=== PATIENT | female | born 1970 | race Caucasian/White ===

== ENCOUNTER 2016-10-06 22:10 | Emergency (ER) | payer BC ==
[~2016-10-06] VITALS: Ht 152.4 cm; Wt 72.3 kg
[2016-10-06 22:15] VITALS: BP 183/99; TEMP 98.4
[2016-10-06] MEDS ORDERED: NOVOLOG 100U100 U/M1 SQ (22:19)
[2016-10-06] MEDS ORDERED: SYNTHROID0.075 MG/T PO (22:20)
[2016-10-06] MEDS ORDERED: GLUCOPHAGE1000 MG PO (22:21)
[2016-10-06] MEDS ORDERED: SINGULAIR 110 MG/TAB PO (22:21)
[2016-10-06] MEDS ORDERED: ASPIRIN 81M81 MG/TA2 PO (22:22)
[2016-10-06] MEDS ORDERED: VIT D (22:22)
[2016-10-06] MEDS ORDERED: BRINTELLIX20 (22:22)
[2016-10-06] MEDS ORDERED: ACCUPRIL10 M1 PO (22:23)
[2016-10-06 23:16] VITALS: PULSE 99
== END 2016-10-06 23:17 | disposition home or self-care (01) ==
LOC: COL.ER 22:10
DX: Z76.0 Encounter for issue of repeat prescription (principal); E11.9 Type 2 diabetes mellitus without complications; Z79.4 Long term (current) use of insulin; Z96.41 Presence of insulin pump (external) (internal)